=== PATIENT | female | born 1950 | race Caucasian/White ===

== ENCOUNTER 2023-06-15 14:48 | Emergency (ER) | payer MEDICARE, MEDICAID ==
[~2023-06-15] VITALS: Ht 162.6 cm; Wt 125.0 kg
[2023-06-15 14:54] VITALS: BP 118/57; PULSE 65; RESP 16; TEMP 98.1; O2SAT 98
[2023-06-15] MEDS ORDERED: KETOROLAC 15MG/ML VIAL IM ONE (16:45)
== END 2023-06-15 17:04 | disposition home or self-care (01) ==
LOC: ER 14:48
DX: M79.604 Pain in right leg (principal); Z68.42 Body mass index [BMI] 45.0-49.9, adult
CPT/HCPCS: 99284; 93971; J1885